=== PATIENT | female | born 1950 | race Caucasian/White ===

== ENCOUNTER 2021-10-19 10:04 | Emergency (ER) | payer MEDICARE, OTHER ==
[~2021-10-19] VITALS: Ht 162.6 cm; Wt 106.1 kg
[2021-10-19] MEDS ORDERED: FAMOTIDINE40 MG PO (12:03)
[2021-10-19] MEDS ORDERED: LISINOPRIL30 MG PO (12:03)
[2021-10-19] MEDS ORDERED: METRONIDAZOLE45 GM TOP (12:04)
[2021-10-19] MEDS ORDERED: ESTROGEL50 GM TD (12:06)
== END 2021-10-19 14:40 | disposition home or self-care (01) ==
LOC: ED 10:04
DX: R51.9 Headache, unspecified (principal); I10 Essential (primary) hypertension; M10.9 Gout, unspecified; Z88.1 Allergy status to other antibiotic agents; Z88.8 Allergy status to other drugs, medicaments and biological substances; Z79.899 Other long term (current) drug therapy
CPT/HCPCS: 36415; 70450; 80053; 85025; 85651; 99284-25